=== PATIENT | female | born 1995 | race Caucasian/White ===

== ENCOUNTER → 2020-03-19 | Outpatient (CLI) | payer MEDICARE ==
--- NOTE | 2020-03-19 12:25 | RAD ---
PA and lateral chest x-ray without comparison for cough, relapsing fever. FINDINGS: The lungs are clear. The cardiomediastinum is grossly unremarkable. No significant soft tissue or osseous abnormalities are seen. IMPRESSION: 1. No acute cardiopulmonary abnormality. Electronically signed by: Toby Field MD (03/19/2020 12:21 PM) [id number]
--- NOTE | 2020-03-19 12:26 | RAD ---
4 views of the facial sinuses without comparison for relapsing fever and sinus pressure. FINDINGS: Bilateral frontal, right maxillary and sphenoid sinuses are all clear. There is a fluid level within the dependent portion of the left maxillary sinus which could reflect acute sinusitis.. No fractures are seen. IMPRESSION: 1. Fluid level in left maxillary sinus concerning for acute sinusitis. Electronically signed by: Toby Field MD (03/19/2020 12:23 PM) [id number]
[2020-03-19 12:50] LABS: BASO % 1 % (0-3); EOS # 0.1 x10^3/uL (0.0-0.7); EOS % 2 % (0-3); HEMOGLOBIN 13.7 g/dL (12.0-15.5); LYMPH # 1.7 x10^3/uL (1.0-4.8); LYMPH % 33 % (24-48); MEAN CORPUSCULAR HEMOGLOBIN 29 pg (25-35); MEAN CORPUSCULAR HGB CONC 33 g/dL (31-37); MEAN CORPUSCULAR VOLUME 89 fL (79-100); MONO # 0.3 x10^3/uL (0.0-1.1); MONO % 6 % (0-9); NEUT # 3.1 x10^3uL (1.8-7.7); NEUT % 58 % (31-73); PLATELET COUNT 200 x10^3/uL (140-400); RED BLOOD COUNT 4.75 x10^6/uL (3.50-5.40); RED CELL DISTRIBUTION WIDTH 13.1 % (11.5-14.5); WHITE BLOOD COUNT 5.3 x10^3/uL (4.0-11.0)
[2020-03-19 13:04] LABS: ALBUMIN 4.5 g/dL (3.4-5.0); ALBUMIN/GLOBULIN RATIO 1.6 (1.0-1.7); ALK PHOS 44 U/L (46-116); ALT (SGPT) 20 U/L (14-59); ANION GAP 9 (6-14); AST (SGOT) 14 U/L (15-37); BLOOD UREA NITROGEN 12 mg/dL (7-20); BUN/CREATININE RATIO 12 (6-20); CALCIUM 9.4 mg/dL (8.5-10.1); CARBON DIOXIDE 29 mmol/L (21-32); CHLORIDE 101 mmol/L (98-107); GFR 68.7; GLUCOSE 70 mg/dL (70-99); POTASSIUM 3.8 mmol/L (3.5-5.1); SODIUM 139 mmol/L (136-145); TOTAL BILIRUBIN 0.7 mg/dL (0.2-1.0); TOTAL PROTEIN 7.3 g/dL (6.4-8.2)
[2020-03-19 13:06] LABS: C REACTIVE PROTEIN < 0.5 mg/L (0-3.3)
== END ==
LOC: RAD 11:56
PROVIDERS: ATTEND Internal Medicine
DX: A68.9 Relapsing fever, unspecified (principal); J01.90 Acute sinusitis, unspecified
CPT/HCPCS: 36415; 70220; 71046; 80053; 85025; 86140